=== PATIENT | female | born 1970 | race African-American/Black ===

== ENCOUNTER → 2017-11-18 | Emergency (ER) | payer BC ==
[~2017-11-18] MED LIST: ASPIRIN 81 MG CHEWABLE TABLETS PO ONE; ASPIRIN COATED 81 MG TABLET.EC ONE; FAMOTIDINE 20 MG/50 ML IVPB 20 MG/50 ML MG IVPB ONE; SODIUM CHLORIDE 1,000 ML IV STA; methylPREDNISolone NA SUCC 125 MG/2 ML VIAL IVPUSH ONE
[2017-11-18 02:34] VITALS: TEMP 97.5; BMI 32.1
--- NOTE | 2017-11-18 03:01 | PDOC ---
History of Present Illness - General Chief Complaint: Chest Pain Stated Complaint: CHEST PAIN Time Seen by Provider: 11/18/17 02:50 History Source: Patient Exam Limitations: No Limitations - History of Present Illness Initial Comments: 11/18/17 03:04 CHIEF COMPLAINT: left sided chest pain HISTORY OF PRESENT ILLNESS: 46-year-old woman with past medical history of hypothyroidism and kidney stones presents emergency Department with gradual onset left-sided chest pain starting this evening. Patient states she got up to go to the bathroom at approximately 12:00 when she noticed she had some pain to the left side of her chest which she attributed to gas. Patient states the pain did not go away and progressively got worse which caused her to come the emergency department today. She denies any dizziness, shortness of breath, nausea, vomiting, sweating, leg pain, drug use, tobacco use. No recent travel or sick contacts. PAST MEDICAL HISTORY: kidney stones SURGICAL HISTORY: Denies ALLERGIES: No known drug allergies REVIEW OF SYSTEMS General/Constitutional: Denies fever or chills. Denies weakness, weight change. HEENT: Denies change in vision. Denies ear pain or discharge. Denies sore throat. Cardiovascular: Left sided chest pain. No shortness of breath. Respiratory: Denies cough, wheezing, or hemoptysis. Gastrointestinal: Denies nausea, vomiting, diarrhea or constipation. Denies rectal bleeding. Genitourinary: Denies dysuria, frequency, or change in urination. Musculoskeletal: Denies joint or muscle swelling or pain. Denies neck or back pain. Skin and breasts: Denies rash or easy bruising. Neurologic: Denies headache, vertigo, loss of consciousness, or loss of sensation. Psychiatric: Denies depression or anxiety. Endocrine: Denies increased thirst. Denies abnormal weight change. Hematologic/Lymphatic: Denies anemia, easy bleeding, or history of blood clots. Allergic/Immunologic: Denies hives or skin allergy. Denies latex allergy. PHYSICAL EXAM General Appearance: Well-appearing, appropriately dressed. No apparent distress , no intoxication. HEENT: EOMI, PERRLA, normal ENT inspection, normal voice, TMs normal, pharynx normal. No conjunctival pallor. No photophobia, scleral icterus. Neck: Supple. Trachea midline. No tenderness, rigidity, carotid bruit, stridor , lymphadenopathy. Respiratory/Chest: Lungs CTAB. No shortness of breath, chest tenderness, respiratory distress, accessory muscle use. No crackles, rales, rhonchi, stridor , wheezing, dullness Cardiovascular: RRR. S1, S2. No JVD, murmur, bradycardia, tachycardia. Vascular Pulses: Dorsalis-Pedis (R): 2+, Dorsalis-Pedis (L): 2+ Gastrointestinal/Abdominal: Normal bowel sounds. Abdomen soft, non-distended. No tenderness or rebound tenderness. No organomegaly, pulsatile mass, guarding , hernia, hepatomegaly, splenomegaly. Lymphatic: No adenopathy, tenderness. Musculoskeletal/Extremities: Normal inspection. FROM of all extremities, normal capillary refill. Pelvis Stable. No CVA tenderness. No tenderness to extremities, pedal edema, swelling, erythema or deformity. Integumentary: Appropriate color, dry, warm. No cyanosis, erythema, jaundice or rash Neurologic: burglar alarm assembler II-XII intact. Fully oriented, alert. Appropriate mood/affect. Motor strength 5/5. No appreciable EOM palsy, facial droop or sensory deficit. Past History - Past Medical History Allergies/Adverse Reactions: Allergies Allergy/AdvReac Type Severity Reaction Status Date / Time clear tape Allergy Uncoded 11/18/17 02:52 Home Medications: Ambulatory Orders Levothyroxine [Synthroid -] 50 mcg PO DAILY 11/18/17 Valacyclovir HCl [Valtrex] 500 mg PO DAILY 11/18/17 COPD: No Kidney Stones: Yes - Immunization History Immunization Up to Date: Yes - Suicide/Smoking/Psychosocial Hx Smoking History: Never smoked Have you smoked in the past 12 months: No Information on smoking cessation initiated: No Hx Alcohol Use: No Drug/Substance Use Hx: No Substance Use Type: None *Physical Exam - Vital Signs Last Vital Signs Temp Pulse Resp BP Pulse Ox 97.5 F L 89 13 115/65 99 11/18/17 02:33 11/18/17 03:47 11/18/17 03:47 11/18/17 03:47 11/18/17 03:47 Heart Score/ECG Review - History History: Slightly suspicious - Electrocardiogram EKG: Non specific repolarization disturbance - Age Age: 45-65 - Risk Factors Based on the list above the patient has:: No risk factors known - Troponin Troponin: </= normal limit - Score Heart Score - Total: 2 ED Treatment Course - LABORATORY CBC & Chemistry Diagram: 11/18/17 03:47 11/18/17 03:47 - ADDITIONAL ORDERS Additional order review: Laboratory Results 11/18/17 11/18/17 11/18/17 03:47 03:47 03:47 PT with INR INR D-Dimer Sodium 142 Potassium 3.4 L Chloride 109 H Carbon Dioxide 26 Anion Gap 7 L BUN 14 Creatinine 1.1 H Creat Clearance w eGFR 53.24 Random Glucose 99 Calcium 8.7 Magnesium 2.1 Total Bilirubin 0.2 AST 22 ALT 21 Alkaline Phosphatase 91 Creatine Kinase 217 H Creatine Kinase Index 0.7 CK-MB (CK-2) 1.52 Troponin I < 0.02 Total Protein 7.1 Albumin 3.4 Urine Color Ltyellow Urine Appearance Clear Urine pH 5.0 Ur Specific [place] 1.016 Urine Protein Negative Urine Glucose (UA) Negative Urine Ketones Negative Urine Blood Negative Urine Nitrite Negative Urine Bilirubin Negative Urine Urobilinogen Negative Ur Leukocyte Esterase Negative Urine HCG, Qual Negative 11/18/17 03:47 PT with INR 11.60 INR 1.03 D-Dimer 628 H Sodium Potassium Chloride Carbon Dioxide Anion Gap BUN Creatinine Creat Clearance w eGFR Random Glucose Calcium Magnesium Total Bilirubin AST ALT Alkaline Phosphatase Creatine Kinase Creatine Kinase Index CK-MB (CK-2) Troponin I Total Protein Albumin Urine Color Urine Appearance Urine pH Ur Specific [place] Urine Protein Urine Glucose (UA) Urine Ketones Urine Blood Urine Nitrite Urine Bilirubin Urine Urobilinogen Ur Leukocyte Esterase Urine HCG, Qual 11/18/17 03:47 RBC 3.77 MCV 89.6 MCHC 33.9 RDW 15.3 MPV 7.7 Neutrophils % 61.1 Lymphocytes % 27.8 D Monocytes % 8.3 Eosinophils % 2.6 D Basophils % 0.2 - RADIOLOGY Radiology Studies Ordered: Category Date Time Status CHEST CTA [CT] Stat CT Scan 11/18/17 05:05 Taken CHEST PA & LAT [RAD] Stat Radiology 11/18/17 03:01 Completed Medical Decision Making - Medical Decision Making 11/18/17 03:07 A/P: 46-year-old woman past medical history of hypothyroidism and kidney stones with left-sided chest pain starting at approximately midnight tonight Normal physical exam no leg swelling no calf tenderness Patient drove home from [place] on 11/14. DDx: Anxiety, ACS, PE, pneumonia, GERD, musculoskeletal pain Cannot r/o PE via PERC. Most likely dx Anxiety. Will send D-dimer. EKG, labs, urine, chest x-ray, aspirin 11/18/17 04:54 EKG is interpreted by Dr. Ramos and reviewed by me: Sinus rhythm with rate of 100 normal axis noted. Prolonged QTC of 469 ms 11/18/17 05:07 Patient with d-dimer 628. I will obtain the CTA rule out PE. Initial troponin is negative. 11/18/17 05:39 X-rays read by me: Trachea midline. Cardiac silhouette is within normal limits. No focal consolidations or infiltrates present. Angles clear. I'm aware of this patient's creatinine is 1.1 with a GFR of 53.24. Patient has a d-dimer of 628 with chest pain after driving from [place] 4 days ago. I have weighed the risks and benefits of CT angiography to rule out pulmonary embolism and believe the benefits of CT scanning outweigh the risks of increased kidney injury as a result of IV contrast. I will hydrate the patient prior to the study and after the study to help with the risk of worsening creatinine. 11/18/17 06:24 Patient returned from CAT scan stating she felt itching in the back of her throat "like a cold is coming on." Lungs clear to auscultation bilaterally. No stridor auscultated. Uvula midline and not edematous. No sublingual edema palpated. I will treat the patient with Pepcid, Benadryl and Solu-Medrol. I will reassess the patient after receiving medications. 11/18/17 06:39 CTA of the chest as read by imaging video production engineer: Negative for pulmonary embolus. Negative for thoracic aortic aneurysm or dissection. The lungs are clear of acute disease.
[2017-11-18 03:50] VITALS: BP 115/65; PULSE 89
[2017-11-18 04:25] LABS: BASO % 0.2 % (0-2.0); EOS % 2.6 % (0-4.5); HEMATOCRIT 33.7 % (32.4-45.2); HEMOGLOBIN 11.4 GM/dL (10.7-15.3); INR 1.03 (0.82-1.09); LYMPH % 27.8 % (8-40); MCH 30.4 pg (25.7-33.7); MCHC 33.9 g/dl (32.0-36.0); MEAN CELL VOLUME 89.6 fl (80-96); MEAN PLT VOLUME 7.7 fl (7.5-11.1); MONO % 8.3 % (3.8-10.2); NEUT % 61.1 % (42.8-82.8); PLATELET COUNT 254 K/MM3 (134-434); PROTHROMBIN TIME (PATIENT) 11.6 SEC (9.7-13.0); RBC 3.77 M/mm3 (3.60-5.2); RDW 15.3 % (11.6-15.6); WHITE BLOOD COUNT 8.1 K/mm3 (4.0-10.0)
--- NOTE | 2017-11-18 04:28 | PDOC ---
*Physical Exam - Vital Signs Last Vital Signs Temp Pulse Resp BP Pulse Ox 97.5 F L 89 13 115/65 99 11/18/17 02:33 11/18/17 03:47 11/18/17 03:47 11/18/17 03:47 11/18/17 03:47 ED Treatment Course - LABORATORY CBC & Chemistry Diagram: 11/18/17 03:47 11/18/17 03:47 - ADDITIONAL ORDERS Additional order review: Laboratory Results 11/18/17 03:47 PT with INR 11.60 INR 1.03 Medical Decision Making - Medical Decision Making 11/18/17 04:28 agree with care from JOSELYN Blake *DC/Admit/Observation/Transfer Diagnosis at time of Disposition: Atypical chest pain - Discharge Dispostion Disposition: HOME Condition at time of disposition: Stable - Referrals Referrals: Jim Kingston MD [Staff Physician] - Clemente Molina MD [Staff Physician] - - Patient Instructions Printed Discharge Instructions: DI for Atypical Chest Pain Additional Instructions: You were evaluated for your chest pain today. Your labs were normal today. Your EKG was normal. Your CAT scan of your chest was negative for blood clots. Please keep a diary of when you have your chest pain. Please follow up with her wicker molded candles this week. Continue all home medications as previously prescribed. Return to the emergency department if you have worsening chest pain, difficulty breathing, shortness of breath, fevers, or if you have any changes in your symptoms. - Post Discharge Activity Forms/Work/School Notes: Back to Work
[2017-11-18 04:32] LABS: URINE APPEARANCE CLEAR; URINE BILIRUBIN NEGATIVE (<2.0 mg/dL); URINE COLOR LTYELLOW; URINE GLUCOSE (UA) NEGATIVE (NEGATIVE); URINE KETONE NEGATIVE (NEGATIVE); URINE LEUK ESTERASE NEGATIVE (NEGATIVE); URINE NITRITE NEGATIVE (NEGATIVE); URINE PROTEIN NEGATIVE (NEGATIVE); URINE UROBILINOGEN NEGATIVE mg/dL (0.2-1.0)
[2017-11-18 04:33] LABS: ALBUMIN 3.4 g/dl (3.4-5.0); ANION GAP 7 (8-16); BLOOD UREA NITROGEN 14 mg/dL (7-18); CALCIUM 8.7 mg/dL (8.5-10.1); CHLORIDE 109 mmol/L (98-107); CO2 26 mmol/L (21-32); CREATININE 1.1 mg/dL (0.55-1.02); GLUCOSE,RANDOM 99 mg/dL (74-106); MAGNESIUM 2.1 mg/dL (1.8-2.4); POTASSIUM 3.4 mmol/L (3.5-5.1); SGOT/AST 22 U/L (15-37); SGPT/ALT 21 U/L (12-78); SODIUM 142 mmol/L (136-145)
[2017-11-18 04:37] LABS: ALK PHOS 91 U/L (45-117); BILIRUBIN,TOTAL 0.2 mg/dL (0.2-1.0); TOT PROT 7.1 g/dl (6.4-8.2)
--- NOTE | 2017-11-18 07:12 | PDOC ---
*Physical Exam - Vital Signs Last Vital Signs Temp Pulse Resp BP Pulse Ox 97.5 F L 89 13 115/65 99 11/18/17 02:33 11/18/17 03:47 11/18/17 03:47 11/18/17 03:47 11/18/17 03:47 - Physical Exam General Appearance: Yes: Nourished, Appropriately Dressed. No: Apparent Distress (sitting up in hosptial bed, breathing easily) Neck: positive: Trachea midline, Supple. negative: Tender, Rigid Respiratory/Chest: positive: Lungs Clear, Normal Breath Sounds. negative: Respiratory Distress, Accessory Muscle Use, Rhonchi, Stridor, Wheezing Cardiovascular: positive: Regular Rhythm, Regular Rate, S1, S2 (present). negative: JVD, Murmur Integumentary: positive: Normal Color, Dry, Warm Neurologic: positive: Fully Oriented, Alert, Normal Mood/Affect, Normal Response , Motor Strength /5 ED Treatment Course - LABORATORY CBC & Chemistry Diagram: 11/18/17 03:47 11/18/17 03:47 - ADDITIONAL ORDERS Additional order review: Laboratory Results 11/18/17 11/18/17 11/18/17 03:47 03:47 03:47 PT with INR INR D-Dimer Sodium 142 Potassium 3.4 L Chloride 109 H Carbon Dioxide 26 Anion Gap 7 L BUN 14 Creatinine 1.1 H Creat Clearance w eGFR 53.24 Random Glucose 99 Calcium 8.7 Magnesium 2.1 Total Bilirubin 0.2 AST 22 ALT 21 Alkaline Phosphatase 91 Creatine Kinase 217 H Creatine Kinase Index 0.7 CK-MB (CK-2) 1.52 Troponin I < 0.02 Total Protein 7.1 Albumin 3.4 Urine Color Ltyellow Urine Appearance Clear Urine pH 5.0 Ur Specific [place] 1.016 Urine Protein Negative Urine Glucose (UA) Negative Urine Ketones Negative Urine Blood Negative Urine Nitrite Negative Urine Bilirubin Negative Urine Urobilinogen Negative Ur Leukocyte Esterase Negative Urine HCG, Qual Negative 11/18/17 03:47 PT with INR 11.60 INR 1.03 D-Dimer 628 H Sodium Potassium Chloride Carbon Dioxide Anion Gap BUN Creatinine Creat Clearance w eGFR Random Glucose Calcium Magnesium Total Bilirubin AST ALT Alkaline Phosphatase Creatine Kinase Creatine Kinase Index CK-MB (CK-2) Troponin I Total Protein Albumin Urine Color Urine Appearance Urine pH Ur Specific [place] Urine Protein Urine Glucose (UA) Urine Ketones Urine Blood Urine Nitrite Urine Bilirubin Urine Urobilinogen Ur Leukocyte Esterase Urine HCG, Qual 11/18/17 03:47 RBC 3.77 MCV 89.6 MCHC 33.9 RDW 15.3 MPV 7.7 Neutrophils % 61.1 Lymphocytes % 27.8 D Monocytes % 8.3 Eosinophils % 2.6 D Basophils % 0.2 - Medications Given in the ED: ED Medications Discontinued Medications Generic Name Dose Route Start Last Admin Trade Name Kip PRN Reason Stop Dose Admin Aspirin 324 mg 11/18/17 03:01 11/18/17 03:05 Asa - PO 11/18/17 03:02 324 mg ONCE ONE Administration Diphenhydramine HCl 25 mg 11/18/17 06:21 11/18/17 06:30 Benadryl Injection - IVPUSH 11/18/17 06:22 25 mg ONCE ONE Administration Sodium Chloride 1,000 mls @ 1,000 mls/hr 11/18/17 05:39 11/18/17 06:20 Normal Saline - IV 11/18/17 06:38 1,000 mls/hr ASDIR STA Administration Famotidine/Sodium Chloride 20 mg in 50 mls @ 100 mls/hr 11/18/17 06:21 06:31 Pepcid 20 Mg Premixed Ivpb - IVPB 11/18/17 06:50 100 mls/hr ONCE ONE Administration Methylprednisolone Sodium Succinate 125 mg 11/18/17 06:21 11/18/17 06:30 Solu-Medrol - IVPUSH 11/18/17 06:22 125 mg ONCE ONE Administration Medical Decision Making - Medical Decision Making 11/18/17 07:11 Sign out received from MARILIA Blake. Chest CT negative for PE. Pt pending second troponin. Will re-evaluate. 11/18/17 08:08 Second Troponin is negative at this time. Pt reports resolution of her symptoms. Will dc home. Return precautions given. Pt understands all dc instructions and all questions were answered. Allergy follow up given for reported symptoms during her CT scan. *DC/Admit/Observation/Transfer Diagnosis at time of Disposition: Atypical chest pain - Discharge Dispostion Disposition: HOME Condition at time of disposition: Stable Decision to Admit order: No - Referrals Referrals: Jim Kingston MD [Staff Physician] - Clemente Molina MD [Staff Physician] - - Patient Instructions Printed Discharge Instructions: DI for Atypical Chest Pain Additional Instructions: You were evaluated for your chest pain today. Your labs were normal today. Your EKG was normal. Your CAT scan of your chest was negative for blood clots. Please keep a diary of when you have your chest pain. 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 Continue all home medications as previously prescribed. Return to the emergency department if you have worsening chest pain, difficulty breathing, shortness of breath, fevers, or if you have any changes in your symptoms. - Post Discharge Activity Forms/Work/School Notes: Back to Work
--- NOTE | 2017-11-18 14:29 | EKG ---
Test Reason : Blood Pressure : / mmHG Vent. Rate : 100 BPM Atrial Rate : 100 BPM P-R Int : 190 ms QRS Dur : 080 ms QT Int : 364 ms P-R-T Axes : 047 031 017 degrees QTc Int : 469 ms NORMAL SINUS RHYTHM NONSPECIFIC T WAVE ABNORMALITY PROLONGED QT ABNORMAL ECG NO PREVIOUS ECGS AVAILABLE Confirmed by PEGGY MARTINES, HAYLEY ([id number]) on 11/18/2017 2:28:42 PM Referred By: Confirmed By:HAYLEY WOODS MD
== END | disposition home or self-care (01) ==
LOC: JER 02:26
DX: R07.9 Chest pain, unspecified (principal); E03.9 Hypothyroidism, unspecified; Z87.442 Personal history of urinary calculi
CPT/HCPCS: 36415; 71046-TC-FY; 71275-TC; 80053; 81003; 82550; 82553; 83735; 84484; 84703; 85025; 85379; 85610; 93005; 93010; 99284-25; J7030

== ENCOUNTER 2018-10-31 14:49 | Emergency (ER) | payer BC ==
[2018-10-31 15:03] VITALS: BP 100/65; PULSE 87; TEMP 98.2; BMI 34.9
--- NOTE | 2018-10-31 15:53 | PDOC ---
History of Present Illness - General Chief Complaint: Pain Stated Complaint: LT HAND NUMBNESS Time Seen by Provider: 10/31/18 15:35 History Source: Patient Exam Limitations: Clinical Condition - History of Present Illness Initial Comments: 10/31/18 15:57 Patient with no significant past medical history present with complaint of numbness and tingling sensation in left hand status post leaning on left elbow for about half an hour an hour ago. Denies any trauma or injury to hand or wrist or elbow. Denies any pain to upper extremity. Denies any other symptoms Timing/Duration: 1 hour Past History - Past Medical History Allergies/Adverse Reactions: Allergies Allergy/AdvReac Type Severity Reaction Status Date / Time adhesive tape Allergy Verified 10/31/18 15:03 clear tape Allergy Uncoded 10/31/18 15:03 Home Medications: Ambulatory Orders Levothyroxine [Synthroid -] 50 mcg PO DAILY 11/18/17 Valacyclovir HCl [Valtrex] 500 mg PO DAILY 11/18/17 COPD: No Kidney Stones: Yes - Immunization History Immunization Up to Date: Yes - Suicide/Smoking/Psychosocial Hx Smoking History: Never smoked Have you smoked in the past 12 months: No Information on smoking cessation initiated: No Hx Alcohol Use: No Drug/Substance Use Hx: No Substance Use Type: None Review of Systems - Review of Systems Able to Perform ROS?: Yes Is the patient limited [place] proficient: No Constitutional: No: Weakness HEENTM: No: Symptoms Reported Respiratory: No: Symptoms reported Cardiac (ROS): No: Symptoms Reported ABD/GI: No: Symptoms Reported Musculoskeletal: Yes: Symptoms Reported, See HPI. No: Muscle Pain, Muscle Weakness Neurological: Yes: Symptoms reported, See HPI, Numbness, Tingling (left hand on ulnar side). No: Weakness All Other Systems: Reviewed and Negative *Physical Exam - Vital Signs Last Vital Signs Temp Pulse Resp BP Pulse Ox 98.2 F 87 18 100/65 100 10/31/18 15:01 10/31/18 15:01 10/31/18 15:01 10/31/18 15:01 10/31/18 15:01 - Physical Exam General Appearance: Yes: Nourished, Appropriately Dressed. No: Apparent Distress HEENT: positive: Normal ENT Inspection Neck: positive: Supple Respiratory/Chest: negative: Respiratory Distress, Accessory Muscle Use Musculoskeletal: positive: Normal Inspection. negative: Decreased Range of Motion Extremity: positive: Normal Capillary Refill, Normal Inspection, Normal Range of Motion. negative: Swelling Integumentary: positive: Normal Color Neurologic: positive: hospital cook II-XII NML intact, Fully Oriented, Alert, Normal Response, Motor Strength 5/5, Respond to painful stimul. negative: Sensory Deficit Medical Decision Making - Medical Decision Making 10/31/18 15:58 Patient with no significant past medical history present with complaint of numbness and tingling sensation in left hand status post leaning on left elbow for about half an hour an hour ago. Denies any trauma or injury to hand or wrist or elbow. Denies any pain to upper extremity. Denies any other symptoms Clinical exam unremarkable with no tenderness on exam and normal sensory and motor sensation to left upper extremity. 5 out of 5 muscle strength to left hand. Symptoms likely ulnar nerve compression. Symptoms shows several resolve in a few hours and advised patient to follow-up with neurology if no improvement by tomorrow. No neuro deficit on exam and patient stable for discharge *DC/Admit/Observation/Transfer Diagnosis at time of Disposition: Ulnar nerve compression Qualifiers: Laterality: left Qualified Code(s): G56.22 - Lesion of ulnar nerve, left upper limb - Discharge Dispostion Disposition: HOME Condition at time of disposition: Stable Decision to Admit order: No - Referrals Referrals: Usama Martins DO [Staff Physician] - - Patient Instructions Printed Discharge Instructions: Peripheral Neuropathy Additional Instructions: Your symptoms is likely from compression of nerve behind elbow which is causing numbness and tingling sensation. It should resolve in few hours. Follow-up with referred neurologist if no improvement by tomorrow - Post Discharge Activity
== END 2018-10-31 16:04 | disposition home or self-care (01) ==
LOC: JERFT 14:49
DX: G56.22 Lesion of ulnar nerve, left upper limb (principal)
CPT/HCPCS: 99281-25